=== PATIENT | female | born 1955 | race Caucasian/White ===

== ENCOUNTER 2018-04-17 00:54 | Outpatient (CLI) | payer MEDICAID, SELFPAY ==
--- NOTE | 2018-04-17 14:21 | DI.RAD_ITS ---
SYMPTOMS/DIAGNOSIS: SCREENING FOR OSTEOPOROSIS IN A POSTMENOPAUSAL WOMAN, Z78.0 DEXA SCAN: The scanogram is unremarkable. For the left hip, a T score of -1.2 and a Z score of -0.2 indicate osteopenia and an increased fracture risk. For the lumbar spine, a T score of -1.8 and a Z score of -0.3 indicate osteopenia and an increased fracture risk. For the left forearm, a T score of -2.1 and a Z score of -0.8 indicate osteopenia and an increased fracture risk.
--- NOTE | 2018-04-17 14:36 | DI.MAMMO_ITS ---
SYMPTOM/DIAGNOSIS: SCREENING MAMMOGRAMS: Mammograms were interpreted according to the usual protocol including computer analysis with CAD system, tomosynthesis and C view imaging. The breast tissue is of moderate radiodensity. There are two asymmetric densities in the left breast which appear unchanged when compared with prior images dating back to 11/02/2009. There are no suspicious calcifications. SUMMARY: No evidence of malignancy. Category 1. Yearly screening mammography is recommended. Breast density, category B. MQSA ASSESSMENT OF FINDINGS: Negative. Category 1. Patient will receive a letter notifying them of these results. BI-RADS category B. There are scattered areas of fibroglandular density.
== END 2018-04-17 01:14 ==
PROVIDERS: PCP Family Medicine; Visit Provider Family Medicine
DX: Z12.31 Encounter for screening mammogram for malignant neoplasm of breast (principal); M85.88 Other specified disorders of bone density and structure, other site; Z78.0 Asymptomatic menopausal state
CPT/HCPCS: 77063; 77067; 77080

== ENCOUNTER 2018-10-20 11:57 | Outpatient (REF) | payer MEDICAID, SELFPAY ==
[2018-10-20 21:11] LABS: ALT 15 U/L (12-78); AST 11 U/L (15-37); Albumin 4.3 g/dL (3.4-5.0); Alkaline Phosphatase 84 U/L (46-116); Anion Gap 12.2 mmol/L (3-11); BUN 13 mg/dL (7-18); Bilirubin, Total 0.4 mg/dL (0.2-1.0); CO2 23.8 mmol/L (21.0-32.0); CREATININE 0.76 mg/dL (0.55-1.02); Calcium 9.9 mg/dL (8.5-10.1); Chloride 105 mmol/L (98-107); Cholesterol 246 mg/dL (50-200); Glucose 93 mg/dL (70-100); HDL Cholesterol 54 mg/dL (40-60); LDL CHOLESTEROL 163 mg/dL (<100); Potassium 4.2 mmol/L (3.5-5.1); Sodium 141 mmol/L (136-145); Total Protein 7.5 g/dL (6.4-8.2); Triglyceride 127 mg/dL (30-150)
== END 2018-10-20 12:17 ==
LOC: NCHCN 11:57
PROVIDERS: PCP Family Medicine; Visit Provider Family Medicine
DX: E78.5 Hyperlipidemia, unspecified (principal)
CPT/HCPCS: 80053; 80061; 83721

== ENCOUNTER 2019-01-29 12:35 | Outpatient (CLI) | payer MEDICAID, SELFPAY ==
--- NOTE | 2019-01-29 13:23 | DI.US_ITS ---
SYMPTOMS/DIAGNOSIS: SUBMANDIBULAR GLAND MASS, K11.8 ULTRASOUND EXAMINATION OF THE SUBMANDIBULAR GLANDS: The left submandibular gland measures 4.7 x 1.4 x 2.3 cm. The right submandibular gland measures 4.4 x 1.2 x 2.8 cm. The glands are acoustically homogeneous. A normal [place]'s duct is visualized bilaterally. There is no evidence of sialolithiasis.
== END 2019-01-29 12:55 ==
PROVIDERS: PCP Family Medicine; Visit Provider Otolaryngology Otolaryngology/Facial Plastic Surgery
DX: K11.8 Other diseases of salivary glands (principal)
CPT/HCPCS: 76536

== ENCOUNTER 2023-06-16 11:17 | Emergency (ER) | payer MEDICARE, MEDICAID, SELFPAY ==
--- NOTE | 2023-06-16 11:15 | DI.RAD_ITS ---
Exam(s) XR ELBOW RT COMPLETE EXAM: XR ELBOW RT COMPLETE CLINICAL HISTORY: fall days ago. TECHNIQUE: 2D digital imaging was performed of the left elbow. Three images were obtained. AP, lat eral and oblique views were obtained. COMPARISON: No exams were available for comparison FINDINGS: BONES: There is avulsion fracture arising from the olecranon best appreciated on the lateral view. N o bony destructive lesion is seen. JOINTS: The elbow is normally aligned. No joint effusion is seen. SOFT TISSUE: There is soft tissue swelling posteriorly. IMPRESSION: Olecranon process avulsion fracture. DATA REPOSITORY: RADIATION DOSE DELIVERED:
[2023-06-16 11:22] VITALS: BP 171/104; PULSE 93; RESP 18; TEMP 36.7; O2SAT 97
--- NOTE | 2023-06-16 11:40 | ED.GENADUL_ITS ---
Discharge Plan Disposition Patient Disposition: Home Discharge Details Clinical Impression: Fracture of right olecranon process, Cellulitis of right elbow Primary Care Provider: Lorena Hodge ED Provider: Titi Villa Home Meds and New Rx's Prescriptions: New doxycycline hyclate 100 mg capsule 100 mg PO BID 10 Days Qty: 20 0RF No Action acetaminophen [Tylenol] 325 MG tablet 650 mg PRN PRN Discharge Instructions Instructions: Doxycycline (By mouth), Elbow Fracture (ED), Cellulitis (ED) Additional Instructions: You were seen in the emergency department for the infected superficial abrasions of your right elbow from a fall weeks ago. There is a small chip off the end of your elbow bone but does not require any manual reduction, please use the provided sling as needed and ice the area, some range of motion is permitted and you should not be immobilized 100% of the time in the sling. Please take 1000 mg of Tylenol every 6 hours, custodial in between Tylenol doses please take 400 mg of ibuprofen also on a 6-hour schedule. Take the prescribed doxycycline that we sent to your pharmacy for your infection and follow-up with your primary care provider for possible referral to wound care. Please return to ED for increasing redness, pain, fever. Referrals: Lorena Hodge [Primary Care Provider] - Discharge Data Discharge Date/Time-TO BE ENTERED AT DEPARTURE: 06/16/23 12:27 Medical Decision Making This dictation utilizes [id number] dictation software and may contain unedited grammatical errors. 67 y/o F presents to ED today with a chief complaint of fall with R elbow abrasions about two weeks ago, crusty scabs present, and mild erythema. Onset and characteristics include minor fall on pavement, still having sharp pain to R elbow olencranon, mild redness and crusting scabs - poor baseline self-care for wounds, without purulent drainage or passive severe ROM tenderness. Patients' medical history: noncontributory. Family and social history: noncontributory. Pertinent exam findings / vital signs include R UE: TTP at R elbow, mild redness surrounding scabbed over abrasions without honey-colored crusts to entire elbow, no ecchymosis, no crepitus, no unilateral arm swelling, ROM limited to pain, s trength 5/5, no bicep tenderness, no vertebral cervical tenderness, making machine catcher strength 5/5, sensation intact R hand. Differential / pathologies of concern include cellulitis, abscess, fracture, sprain/strain. Diagnostic studies of: -XR R Elbow - shows small avulsion fracture of olecranon process. Interventions of: -sling, general wound-care. ED Course/Assessment/Plan: 67-year-old female suffered a minor fall 2 weeks ago and has had poor self care for her wound since then, she reports still having pain at the elbow as well as some redness and crusting around her scabs that have formed, there is no sign of fluctuant abscess, no honey colored crusts of staph skin infection, she does have tenderness at the olecranon process without palpable crepitus, mild limited range of motion due to pain, no pain with passive range of motion, do not suspect septic arthritis at this time, the patient's wounds were cleaned and dressed with bacitracin, I did recommend that she follow-up with wound care which is unavailable at this facility I recommended she call her primary care provider, I stated that she has a small avulsion fracture of the olecranon process which needs time in the sling to heal but required no intervention currently, she may follow-up with orthopedics, recommend she remove the sling while at home and perform pendulum exercises to prevent frozen shoulder and take therapeutic dosing of Tylenol and ibuprofen as tolerated. Findings not consistent with septic arthritis, vascular pathology of right upper extremity, severe cellulitis, neurovascular compromise. Disposition of Cellulitis of Right Elbow, Fracture of Right Olecranon Process. Patient verbalized understanding of the plan and return to ED criteria and engaged in shared decision making. Medical Records Medical records reviewed: Yes I reviewed the patient's medical records. Imaging Data Radiologic Study: Radiologist's impression: Exam: XR Right Elbow Exam date and time: 06/16/2023 11:39 AM Age: 67 years old Clinical indication: Injury or trauma; Other: Fall days ago TECHNIQUE: Imaging protocol: Radiologic exam of the right elbow. Views: 3 or more views. COMPARISON: No relevant prior studies available. FINDINGS: Bones/joints: Small cortical avulsion fracture deformity of the olecranon process. Soft tissues: Soft tissue swelling about the ankle joint. IMPRESSION: Small cortical avulsion fracture deformity of the olecranon process. Adjacent soft tissue swelling. Dictated and Authenticated by: Olivia Brooks MD. Ordering:PAYAM Walls MD HPI General Date/Time Provider Initiated Documentation: 06/16/23 11:23 . HPI Narrative: 67 year-old female presents to ED today by POV with a chief complaint of minor fall about two weeks ago, scraping her R elbow (R-arm dominant) on pavement with onset of redness and failure to improve of elbow pain. Quality described as generalized elbow pain, crusty scabs, mild redness, pain with movement, no radiation to pain with passive ROM, fever, unilateral arm swelling, purulent drainage from abrasions. Severity is described as moderate. Palliating factors include nothing attempted, patient has poor baseline self-care for the abrasions. Provoking factors include nothing specific, denies vertigo/chest pain/syncope at fall, tripped. Patient not anticoagulated. Related Data Home Medications Medication Instructions Recorded Confirmed acetaminophen 325 mg tablet 650 mg PRN PRN 07/12/13 06/25/17 (Tylenol) doxycycline hyclate 100 mg capsule 100 mg PO BID cellulitis 10 days 06/16/23 #20 caps Previous Rx's Medication Instructions Recorded doxycycline hyclate 100 mg capsule 100 mg PO BID cellulitis 10 days 06/16/23 #20 caps Allergies Allergy/AdvReac Type Severity Reaction Status Date / Time No Known Allergies Allergy Unverified 06/16/23 11:27 General Stated Complaint: Cellulitis ABDIRIZAK: 3 Review of Systems All systems reviewed & are unremarkable except as noted in HPI and below PFSH All Active Problems (Updated 06/16/23 @ 12:03 by AGUS Roque) Cellulitis of right elbow (Acute) Fracture of right olecranon process (Acute) Social History Smoking/Tobacco Use Status: Current every day Tobacco Type: cigarettes Smoking risk assessment performed?: Yes Alcohol Intake: current Alcohol Intake frequency: a few times a month Drug use: Never Substance use type: does not use Do you feel safe at home: Yes Do you feel safe in your relationship?: Yes Exam Narrative Exam Narrative: GENERAL APPEARANCE: Well-nourished, non-toxic, awake and alert, atraumatic, no acute distress. SKIN: Warm, pink, dry, intact, without rashes/lesions/ulcerations. HEAD: Normocephalic, atraumatic, normal hair distribution for gender/age. EYES: Pupils PERRLA, EOMs intact without nystagmus, normal conjunctiva, no exudates on lids/lashes. ENT: Nares patent, no circumoral cyanosis, no facial swelling NECK: Supple, trachea midline, painless cervical ROM. LUNGS/CHEST: Non-labored respirations, normal A/P diameter, symmetrical expansion, no chest wall deformity HEART (CV/PV): Regular rate, R radial pulse 2+, no peripheral edema, no JVD. ABDOMEN: Soft, non-distended, no guarding. MSK: Normal ROM, no swelling/deformity to bilateral UEs or LEs, moving all extremities without weakness, no cyanosis, spine midline without tenderness, normal curvature. R UE: TTP at R elbow, mild redness surrounding scabbed over abrasions without honey-colored crusts to entire elbow, no ecchymosis, no crepitus, no unilateral arm swelling, ROM limited to pain, strength 5/5, no bicep tenderness, no vertebral cervical tenderness, making machine catcher strength 5/5, sensation intact R hand NEURO: Mental Status AAOx4 - alert to person, place, time, events No facial droop, no forehead involvement. Motor: No focal weakness - strength 5/5 in bilateral UEs and LEs, proximal and distal, symmetric. Sensory: sensation intact to light touch globally. Gait normal: patient ambulated without ataxia into ED room. PSYCH: euthymic, cooperative, pleasant, appropriate speech Course Vital Signs Vital signs: Vital Signs Temperature 36.7 C 06/16/23 11:22 Pulse 93 H 06/16/23 11:22 Respiratory Rate 18 06/16/23 11:22 Blood Pressure 171/104 H 06/16/23 11:22 Pulse Oximetry 97 06/16/23 11:22 Temperature 36.7 C 06/16/23 11:22 Temperature Source Skin 06/16/23 11:22 Pulse 93 H 06/16/23 11:22 Respiratory Rate 18 06/16/23 11:22 Respiratory Effort Normal 06/16/23 11:26 Blood Pressure 171/104 H 06/16/23 11:22 Blood Pressure Position Sitting 06/16/23 11:22 Pulse Oximetry 97 06/16/23 11:22 Oxygen Delivery Method Room Air 06/16/23 11:22 Oxygen Flow Rate 0 06/16/23 11:22 Pain Level 7 06/16/23 11:22
--- NOTE | 2023-06-16 11:59 | DI.VRAD_ITS ---
PROCEDURE INFORMATION: Exam: XR Right Elbow Exam date and time: 06/16/2023 11:39 AM Age: 67 years old Clinical indication: Injury or trauma; Other: Fall days ago TECHNIQUE: Imaging protocol: Radiologic exam of the right elbow. Views: 3 or more views. COMPARISON: No relevant prior studies available. FINDINGS: Bones/joints: Small cortical avulsion fracture deformity of the olecranon process. Soft tissues: Soft tissue swelling about the ankle joint. IMPRESSION: Small cortical avulsion fracture deformity of the olecranon process. Adjacent soft tissue swelling. Dictated and Authenticated by: Olivia Brooks MD. Ordering:PAYAM Walls MD
== END 2023-06-16 12:27 | disposition home or self-care (01) ==
PROVIDERS: Emergency Provider Physician Assistant; PCP Family Medicine
DX: S52.021A Displaced fracture of olecranon process without intraarticular extension of right ulna, initial encounter for closed fracture (principal); W19.XXXA Unspecified fall, initial encounter; L03.113 Cellulitis of right upper limb
CPT/HCPCS: 99283; 73080; 99284

== ENCOUNTER 2023-08-24 11:30 | Emergency (ER) | payer MEDICARE, MEDICAID, SELFPAY ==
[2023-08-24 11:32] VITALS: BP 198/93; PULSE 80; RESP 16; TEMP 36.7; O2SAT 98
--- NOTE | 2023-08-24 11:36 | ED.GENADUL_ITS ---
Discharge Plan Disposition Patient Disposition: Home Discharge Details Clinical Impression: Cellulitis of arm, right, Contact dermatitis, Blood pressure elevated without history of HTN Primary Care Provider: Lorena Hodge ED Provider: Martin Ledezma Home Meds and New Rx's Prescriptions: New triamcinolone acetonide 0.1 % ointment 1 applic topical BID 14 Days Qty: 80 0RF doxycycline monohydrate 25 mg/5 mL suspension for reconstitution 100 mg PO BID 5 Days Qty: 200 0RF Continued acetaminophen [Tylenol] 325 MG tablet 650 mg PO PRN PRN Discharge Instructions Instructions: Cellulitis (ED), Dermatitis (ED) Additional Instructions: You are seen in the emergency department for your arm swelling. You have signs of a skin infection for which you are receiving antibiotics that you should take for the next 5 days as directed. You also have signs of an allergic reaction from the lanolin in the bag balm. Please discontinue using bag balm. As needed you may use Vaseline. Please also take this prescription for topical steroid and use this twice a day for the next 2 weeks. The dermatology team at [facility] will call you for a follow-up appointment. Please call them on Saturday: As we discussed, if you develop any fevers chills cannot take antibiotics as result of nausea or vomiting please return to the emergency department. Discharge Data Discharge Date/Time-TO BE ENTERED AT DEPARTURE: 08/24/23 13:19 HPI General Date/Time Provider Initiated Documentation: 08/24/23 11:36 . HPI Narrative: MDM This is an overall very well-appearing normothermic and not tachycardic 68-year-old female with crusted plaque concerning for local inflammation secondary to topical emollient ointment versus cellulitis. No pain out of proportion to suggest necrotizing soft tissue infection. No history of IV drug use and no significant limitations in range of motion to suggest septic joint. No fluctuance to suggest abscess. Right hand warm well-perfused I am not concerned for vascular injury. Will repeat elbow x-ray given olecranon fracture diagnosed 2 months ago. No significant osseous tenderness to the right forearm however given trauma will obtain plain films. Will touch base with dermatology to discuss possibility of steroids. 12:51 PM I spoke with Dr. Camden Acevedo from dermatology at [facility] [place]. He was concerned that the patient's well-demarcated honey crusted erythematous plaque represented contact dermatitis from lanolin from bag balm. He advised discontinuing bag balm in favor of Vaseline as needed. He also recommended adding a steroid twice daily for 14 days: Triamcinolone 0.1 % Given concern for possible concurrent infection he also advised 5 days of doxycycline. 1:15 PM At the time of discharge patient's blood pressure still markedly elevated. She does not have a history of hypertension. I have asked health machine records units supervisor Michelle to have her seen next week by her primary care provider. I advised her that elevated blood pressure chronically could set her up for stroke myocardial infarction and other dangerous medical conditions. I advised her to return if she develops any difficulty breathing or headaches. She understood her return indications and was discharged with empiric trial of expectant outpatient management. Chronic conditions affecting the care of the patient: N/A History obtained from an outside historian: N/A External record review: N/A Medications: N/A Social determinants of health affecting disposition: N/A Management discussed with: Dermatology [facility] Treatment/interventions considered: N/A Response to therapies provided: N/A HPI This is a [id number] 68-year-old female arrived to the emergency department with her brother via private vehicle in the setting of right forearm discomfort and swelling. Patient was seen approximately 2 months ago for similar symptoms. She had sustained a fall approximately 5 months ago. She received 10-day course of doxycycline and a splint as it was concerned for an olecranon fracture at her next visit. She has had no recurrent trauma. She has been using her right upper extremity with no significant limitations in her range of motion. Patient reportedly has been applying bag balm to her right upper extremity. She took only 5 days of her 10-day course of doxycycline. She has had no fevers no chills no nausea no vomiting. Exam General: Well-appearing in no acute distress speaking in complete sentences. Head: Normocephalic, atraumatic. Eye: extraocular eye movements intact. No conjunctival injection. No scleral icterus. Ear, nose, mouth, throat: Grossly normal inspection. Normal voice, handling secretions normally. Neck: Trachea midline. Cardiovascular: Well-perfused distal extremities. Respiratory: Nonlabored respiration. Gastrointestinal: Nondistended abdomen. Musculoskeletal: On the volar surface of the patient's right upper extremity just distal to her elbow there is an approximately 7 x 3 cm crusted erythematous plaque. More proximally on the dorsal surface of the patient's distal humerus there is an approximately 3 x 3 cm crusted mildly erythematous and salmon- colored plaque. Right hand warm well-perfused. Cap refill less than 2 seconds in the right fingertips. Right 2+ radial pulse. Sensation and motor function intact in the right hand across the radial, ulnar, and median distributions. Skin: Normal for age and race, grossly normal temperature and turgor. No acute rash. Neurologic: Alert and appropriate, no apparent acute deficits. Psychiatric: Mood and manner are appropriate. Grooming and personal hygiene are appropriate. Related Data Home Medications Medication Instructions Recorded Confirmed acetaminophen 325 mg tablet 650 mg PO PRN PRN 07/12/13 08/24/23 (Tylenol) doxycycline monohydrate 25 mg/5 mL 100 mg (20 mL) PO BID 5 days #200 08/24/23 oral suspension mL triamcinolone acetonide 0.1 % 1 applic topical BID 14 days #80 08/24/23 topical ointment grams Previous Rx's Medication Instructions Recorded doxycycline monohydrate 25 mg/5 mL 100 mg (20 mL) PO BID 5 days #200 08/24/23 oral suspension mL triamcinolone acetonide 0.1 % 1 applic topical BID 14 days #80 08/24/23 topical ointment grams Allergies Allergy/AdvReac Type Severity Reaction Status Date / Time No Known Allergies Allergy Unverified 08/24/23 11:35 General Stated Complaint: Cellulitis ABDIRIZAK: 3 Course Vital Signs Vital signs: Vital Signs Temperature 36.7 C 08/24/23 11:32 Pulse 80 08/24/23 11:32 Respiratory Rate 16 08/24/23 11:32 Blood Pressure 198/93 H 08/24/23 11:32 Pulse Oximetry 98 08/24/23 11:32 Temperature 36.7 C 08/24/23 11:32 Temperature Source Skin 08/24/23 11:32 Pulse 80 08/24/23 11:32 Respiratory Rate 16 08/24/23 11:32 Blood Pressure 198/93 H 08/24/23 11:32 Blood Pressure Position Sitting 08/24/23 11:32 Pulse Oximetry 98 08/24/23 11:32 Oxygen Delivery Method Room Air 08/24/23 11:32 Oxygen Flow Rate 0 02/24/24 11:32 Pain Level 0 08/24/23 11:32 Medical Decision Making Quality:SDOH Health Related Social Needs: 2 No Data to Display PFSH All Active Problems (Updated 08/24/23 @ 13:19 by Martin Ledezma MD) Blood pressure elevated without history of HTN (Acute) Contact dermatitis (Acute) Cellulitis of arm, right (Acute) Social History Smoking/Tobacco Use Status: Current every day Tobacco Type: cigarettes Smoking risk assessment performed?: Yes Alcohol Intake: current Alcohol Intake frequency: a few times a month Drug use: Never Substance use type: does not use Do you feel safe at home: Yes Do you feel safe in your relationship?: Yes
--- NOTE | 2023-08-24 11:45 | DI.RAD_ITS ---
Exam(s) XR ELBOW RT COMPLETE EXAM: XR ELBOW RT COMPLETE CLINICAL HISTORY: Right elbow pain. TECHNIQUE: 2D digital imaging was performed. COMPARISON: CR,XR XR ELBOW RT COMPLETE from 06/16/2023 FINDINGS: 3 views There is a 9 x 3 millimeter osteophytic density posterior to the olecranon which is either an avulsio n injury at the triceps attachment level or calcification with in the olecranon bursa. There does no t appear to be elevation of the fat pads within the joint to suggest joint effusion. Radial head and neck appear intact as does the distal radius and epicondyles. No loose intra-articular bodies. There also appears to be some dorsal soft tissue swelling in the forearm starting at and continuing b elow the level of the elbow. IMPRESSION: Findings as above. Correlation with site of tenderness recommended. DATA REPOSITORY: RADIATION DOSE DELIVERED:
--- NOTE | 2023-08-24 11:45 | DI.RAD_ITS ---
Exam(s) XR FOREARM RT EXAM: XR FOREARM RT CLINICAL HISTORY: right forearm swelling per Dr. Ledezma and patient. TECHNIQUE: 2D digital imaging was performed. COMPARISON: No exams were available for comparison FINDINGS: Two views. There is prominent dorsal soft tissue swelling over the proximal half of the forearm. There is no ra diopaque foreign body. No fracture of the adjacent bones. However, there is an osteophytic sliver measuring 9 x 2 millimete rs at the level of the olecranon bursa with minimal swelling at this level. This is possibly calcifi c olecranon bursitis. There is no obvious cortical defect in the adjacent parent bone of the posteri or olecranon fossa. Nevertheless, correlation with site of tenderness is recommended, particularly i f there is a trauma history here. There does not appear to be an actual elbow joint effusion. IMPRESSION: As above. DATA REPOSITORY: RADIATION DOSE DELIVERED:
--- NOTE | 2023-08-24 12:47 | DI.VRAD_ITS ---
PROCEDURE INFORMATION: Exam: XR Right Forearm Exam date and time: 08/24/2023 12:25 PM Age: 68 years old Clinical indication: Other: Right forearm swelling TECHNIQUE: Imaging protocol: Radiologic exam of the right forearm. Views: 2 views. COMPARISON: CR XR ELBOW RT COMPLETE 06/16/2023 11:39 AM FINDINGS: Bones/joints: Small avulsion fracture deformity of the olecranon. This appears similar when compared to the prior examination. Soft tissues: Dorsal soft tissue swelling. IMPRESSION: Chronic avulsion fracture deformity of the olecranon. Dorsal soft tissue swelling Dictated and Authenticated by: Olivia Brooks MD. Ordering:YUMIKO Salazar MD
--- NOTE | 2023-08-24 12:47 | DI.VRAD_ITS ---
PROCEDURE INFORMATION: Exam: XR Right Elbow Exam date and time: 08/24/2023 12:26 PM Age: 68 years old Clinical indication: Other: Right elbow swelling TECHNIQUE: Imaging protocol: Radiologic exam of the right elbow. Views: 3 or more views. COMPARISON: CR XR ELBOW RT COMPLETE 06/16/2023 11:39 AM FINDINGS: Bones/joints: Small remote avulsion fracture deformity of the olecranon Soft tissues: Dorsal soft tissue swelling of the proximal forearm. IMPRESSION: Dorsal soft tissue swelling of the proximal forearm. Chronic avulsion fracture deformity of the olecranon Dictated and Authenticated by: Olivia Brooks MD. Ordering:YUMIKO Salazar MD
[2023-08-24 13:16] VITALS: BP 200/90; PULSE 75; RESP 17; O2SAT 97
--- NOTE | 2023-08-24 13:19 | NUR.NOTE ---
Referral faxed to Primary Care, Lorena Hodge, for follow up Elevated BP without Hypertension sometime next week.
== END 2023-08-24 13:19 | disposition home or self-care (01) ==
PROVIDERS: Emergency Provider Emergency Medicine; PCP Family Medicine
DX: R22.31 Localized swelling, mass and lump, right upper limb (principal); L03.113 Cellulitis of right upper limb; R03.0 Elevated blood-pressure reading, without diagnosis of hypertension; Z91.81 History of falling
CPT/HCPCS: 99284; 73080; 73090; 99283

== ENCOUNTER 2024-06-09 09:01 | Emergency (ER) | payer MEDICARE, MEDICAID, SELFPAY ==
[2024-06-09] VITALS (20 sets, daily range): BP systolic 153–164; BP diastolic 70–94; PULSE 63–74; RESP 14–26; TEMP 36.7–36.8; O2SAT 88–97
--- NOTE | 2024-06-09 09:15 | DI.CT_ITS ---
Exam(s) CT ABDOMEN PELVIS W EXAM: CT ABDOMEN PELVIS W CLINICAL HISTORY: Right lower quadrant pain. TECHNIQUE: Imaging Protocol: Axial computed tomography images with coronal and sagittal reformatted images were created and reviewed CONTRAST MATERIAL: Intravenous: Omnipaque-350 100cc Oral: None COMPARISON: No exams were available for comparison FINDINGS: VISUALIZED LUNG BASES: No nodules nor pleural effusions evident. ABDOMEN: There is no ascites. LIVER: There are no focal hepatic lesions evident. No dilated intrahepatic ducts. GALLBLADDER/BILIARY: No obvious gallbladder pathology. CBD is not dilated. PANCREAS: No evidence of pancreatic mass nor dilatation of the pancreatic duct. SPLEEN: Spleen is not enlarged. No obvious intrasplenic lesions. Splenic and portal veins are paten t. ADRENALS: There are no significant adrenal masses. KIDNEYS:No significant focal findings in the left kidney. There is mild hydronephrosis and hydrouret er on the right side. The right ureter is dilated to 8 mm. The culprit calculus is at the right ure terovesical junction and measures 7 x 5 mm. There is edema in the bladder wall at this level. No si gnificant renal cysts nor solid renal masses.. ABDOMINAL AORTA: The abdominal aorta is calcified and atherosclerotic. Maximum diameter is 2.4 cm. No dissection. The common iliac arteries are also calcified-atherosclerotic but not enlarged. LYMPH NODES:There is no retroperitoneal nor paraaortic adenopathy. ABDOMINAL WALL: No evidence of significant anterior abdominal wall nor inguinal hernia. GI: There is no evidence of bowel obstruction, free air, nor abscess. Extensive sigmoid diverticulosis. No obvious acute diverticulitis. PELVIS: GI: No evidence of acute appendicitis.No evidence of sigmoid diverticulitis. LYMPH NODES: There is no intrapelvic nor inguinal adenopathy. REPRODUCTIVE: Uterus and adnexal regions unremarkable. URINARY BLADDER: 7 x 5 mm culprit calculus at the intramural aspect right ureterovesical junction. N o other bladder findings. OSSEOUS: No fractures and no significant osseous lesions. Moderate disc space narrowing L4-5 and mild degenerative anterolisthesis L4 upon L5. No pars defects . IMPRESSION: 1. The main acute finding here is an obstructing 7 x 5 mm calculus in the lower most right ureter at the intramural aspect of the right ureterovesical junction. The ureter above this level is dilated t o 8 mm and there is dilatation of the ipsilateral extrarenal right renal pelvis. Also mild ipsilater al perinephric fluid. There are no radiopaque calculi seen in either kidney. 2. Atherosclerotic abdominal aorta with mild aneurysmal dilatation. No aneurysms of the iliac arteri es. 3. Extensive sigmoid diverticulosis but no evidence of obvious acute diverticulitis. Report called by myself to ER physician 06/09/2024 at 10:30 a.m. RADIATION DOSE DELIVERED: 500.26mGy.cm Total DLP DATA REPOSITORY: All CT scans at this facility are submitted to the National Radiology Data Registry (NRDR) Dose Index Registry (DIR) with the [employer] (A[employer]). RADIATION OPTIMIZATION: All CT scans at this facility use at least one of these dose optimization te chniques: automated exposure control; mA and/or kV adjustment per patient size (includes targeted exa ms where dose is matched to clinical indication); or iterative reconstruction.
--- NOTE | 2024-06-09 09:20 | ED.GENADUL_ITS ---
Discharge Plan Disposition Patient Disposition: Home Discharge Details Clinical Impression: Dilatation of aorta, Ureterolithiasis, Hydronephrosis of right kidney Primary Care Provider: Lorena Hodge ED Provider: Martin Ledezma Home Meds and New Rx's Prescriptions: New tamsulosin 0.4 mg capsule 0.4 mg PO .Nightly Qty: 14 0RF Morphine Ir, 4 Tabs/Btl [Msir, 4 Tabs/Btl] 15 mg PO DISPENSE 3 Days 0RF Ondansetron Odt, 3 Tabs/Btl [Zofran Odt, 3 Tabs/Btl] 4 mg PO DISPENSE Qty: 1 0RF Continued acetaminophen [Tylenol] 325 MG tablet 650 mg PO PRN PRN Discharge Instructions Instructions: Kidney Stone, Adult ED Additional Instructions: You were seen in the emergency department for your abdominal pain. You are found to have a 7 mm stone from your kidneys. Please call the urology team for follow-up. As we discussed please take these medicines that have been prescribed. If you develop fevers worsening pain or begin vomiting please return to the emergency department. You are also found to have a mildly enlarged aorta. Please follow-up with your primary care provider about this incidental finding as he will likely benefit from follow-up ultrasounds. For your pain please take medications as follows: 1. Take acetaminophen (Tylenol), 1,000 mg (two 500 mg tabs) every 6 hours [2. Take ibuprofen (Advil), 400 mg every 6 hours.] You are also receiving a stronger medication which you should use as needed for additional pain after taking acetaminophen and ibuprofen. Referrals: Apolonia Vallejo, VICK [NURSE PRACTITIONER] - 1 week HPI General Date/Time Provider Initiated Documentation: 06/09/24 09:20 . HPI Narrative: MDM This is an overall well-appearing normothermic and not tachycardic 68-year-old with right lower quadrant pain concerning for the possibility of appendicitis versus diverticulitis versus cholecystitis. Patient has no obvious gallbladder wall thickening nor pericholecystic fluid on ultrasound however given appendicitis is in the differential will obtain CT scan. Patient has no history of nephrolithiasis however ureterolithiasis is certainly on the differential. I considered PE however the patient is not short of breath and not having chest pain so I did not send a D-dimer. Given no nausea no vomiting no chest pain my suspicion was low for ACS I did not obtain an ECG. No dysuria no frequency so doubt UTI. No pain out of proportion to suggest necrotizing soft tissue infection. No rash to abdomen to suggest zoster. No diarrhea nor fevers though diverticulitis is on the differential. Colitis is certainly on the differential given the patient's age. No history of inflammatory bowel disease so my suspicion is low for Crohn's or ulcerative colitis based on the patient's age. No past surgical history to abdomen and not vomiting so my suspicion is low for small bowel obstruction. Will treat with IV acetaminophen and fentanyl. 10:33 AM Pt had a right-sided UVJ stone measuring 7 mm for which I reached out to urology. Normal renal function, no GLEN. UA pending. UA nitrite negative??not consistent with UTI. 9:15 AM I spoke with Apolonia Vallejo from urology who will help follow-up with the patient. She advised tremulous and pain meds and referral. Will also provide ondansetron. I met with the patient and explained that she should return if she develops fevers begins vomiting that does not stop or if she has worsening pain. Will discharge her with tamsulosin, ondansetron, and short course of morphine IR. She was also found to have a mild dilatation of her abdominal aorta for which I advised PCP follow-up. I also told her about this incidental finding. I have asked healthy to juan Martinez to have her seen by a primary care provider in the next month as she reportedly does not have a PCP. HPI This is a 68-year-old female arrived to the emergency department via private vehicle in the setting of right-sided abdominal pain that woke patient up from sleep this morning. No history of ureterolithiasis. No dysuria no frequency. No diarrhea. No nausea nor vomiting. No black nor bloody stools. Last bowel movement was yesterday and was reportedly normal. No past surgical history to abdomen. No fevers cough no shortness of breath. No chest pain. Exam General: Well-appearing in no acute distress speaking in complete sentences. Head: Normocephalic, atraumatic. Eye: Extraocular eye movements intact. No conjunctival injection. No scleral icterus. Ear, nose, mouth, throat: Grossly normal inspection. Normal voice, handling secretions normally. Neck: Trachea midline. Cardiovascular: Well-perfused distal extremities. Respiratory: Nonlabored respiration. Gastrointestinal: Nondistended abdomen. Musculoskeletal: No edema. Moving all 4 extremities spontaneously. Skin: Normal for age and race, grossly normal temperature and turgor. No acute rash. Neurologic: Alert and appropriate, no apparent acute deficits. Psychiatric: Mood and manner are appropriate. Grooming and personal hygiene are appropriate. Related Data Home Medications ?Medication ?Instructions ?Recorded ?Confirmed acetaminophen 325 mg tablet 650 mg PO PRN PRN 07/12/13 06/09/24 (Tylenol) MORPHine IR, 4 tabs/btl [MSIR, 4 15 mg PO DISPENSE 3 days 06/09/24 tabs/btl] Ondansetron ODT, 3 tabs/btl 4 mg PO DISPENSE #1 unit 06/09/24 [Zofran ODT, 3 tabs/btl] tamsulosin 0.4 mg capsule 0.4 mg PO .Nightly #14 caps 06/09/24 Previous Rx's ?Medication ?Instructions ?Recorded MORPHine IR, 4 tabs/btl [MSIR, 4 15 mg PO DISPENSE 3 days 06/09/24 tabs/btl] Ondansetron ODT, 3 tabs/btl 4 mg PO DISPENSE #1 unit 06/09/24 [Zofran ODT, 3 tabs/btl] tamsulosin 0.4 mg capsule 0.4 mg PO .Nightly #14 caps 06/09/24 Allergies Allergy/AdvReac Type Severity Reaction Status Date / Time No Known Allergies Allergy Unverified 06/09/24 09:13 General Stated Complaint: Abd Prob ABDIRIZAK: 3 Course Vital Signs Vital signs: Vital Signs Temperature 36.7 C 06/09/24 09:10 Pulse 66 06/09/24 09:10 Respiratory Rate 16 06/09/24 09:10 Blood Pressure 164/92 H 06/09/24 09:10 Pulse Oximetry 95 06/09/24 09:10 Temperature 36.7 C 06/09/24 09:10 Temperature Source Oral 06/09/24 09:10 Pulse 66 06/09/24 09:10 Respiratory Rate 16 06/09/24 09:10 Blood Pressure 164/92 H 06/09/24 09:10 Blood Pressure Position Sitting 06/09/24 09:10 Pulse Oximetry 95 06/09/24 09:10 Oxygen Delivery Method Room Air 06/09/24 09:10 Oxygen Flow Rate 0 06/09/24 09:10 Pain Level 9 06/09/24 09:10 Medical Decision Making Quality:SDOH Health Related Social Needs: No Data to Display PFSH All Active Problems (Updated 06/09/24 @ 11:21 by Martin Ledezma MD) Hydronephrosis of right kidney (Acute) Ureterolithiasis (Acute) Dilatation of aorta (Acute) Social History Smoking/Tobacco Use Status: Current every day Tobacco Type: cigarettes Smoking risk assessment performed?: Yes Alcohol Intake: current Alcohol Intake frequency: a few times a month Drug use: Never Substance use type: does not use Housing: house Do you feel safe at home: Yes Do you feel safe in your relationship?: Yes POCUS Exam (ED) Limited Gallbladder Exam DATE OF EXAM: 06/09/24 TIME OF EXAM: 09:45 PROVIDER THAT PERFORMED THE STUDY: Martin Ledezma REASON FOR VISIT: Abdominal pain VISUALIZED STRUCTURES: Common bile duct and Gallbladder PERTINENT FINDINGS/IMPRESSION: No Cholecystitis, No gallstones, No Pericholecystic fluid and No thickening of the gallbladder wall Exam complete
[2024-06-09] MEDS: fentaNYL 100 MCG/2 ML VIAL 50 MCG IVP (09:28)
[2024-06-09] MEDS: ACETAMINOPHEN 1,000 MG/100 ML BAG 400 MG IVPB (09:53)
[2024-06-09 09:56] LABS: Abs Immature Grans 0.04 10^3/uL (0.0-0.06); Absolute Basophil Count 0.06 10^3/uL (0.0-0.2); Absolute Eosinophil Count 0.22 10^3/uL (0.0-0.7); Absolute Lymphocyte Count 2.06 10^3/uL (1.2-3.4); Absolute Neutrophil Count 8.24 10^3/uL (1.2-6.7); Basophils % 0.5 %; Eosinophils % 1.9 %; HCT 44.3 % (36.0-46.0); HGB 14.3 g/dL (11.2-15.7); Immature Grans % 0.4 %; Lymphocytes % 18.2 %; MCHC 32.3 % (32.0-36.0); MCV 93 fL (80-95); MPV 8.4 fL (8.0-11.0); Monocytes % 6.2 %; Neutrophils % 72.8 %; Platelet Count 259 10^3/uL (130-400); RBC 4.77 10^6/uL (3.93-5.22); RDW 13.2 % (11.7-14.6); RDW-SD 45.6 fL; WBC 11.32 10^3/uL (4.4-10.8)
[2024-06-09] MEDS: Normal Saline - Diluent 50 ML VIAL IJ (09:59)
[2024-06-09] MEDS: Omnipaque 350 MG/ML 100 ML BTL IJ (10:00)
[2024-06-09 10:13] LABS: ALT 14 U/L (14-59); AST 9 U/L (15-37); Albumin 3.9 g/dL (3.4-5.0); Alkaline Phosphatase 93 U/L (46-116); Anion Gap 6.6 mmol/L (3-11); BUN 17 mg/dL (7-18); Bilirubin, Total 0.39 mg/dL (0.2-1.0); CO2 28.4 mmol/L (21.0-32.0); Calcium 9.7 mg/dL (8.5-10.1); Chloride 106 mmol/L (98-107); Estimated GFR 61.75 (mL/min/1.73m2); Glucose 109 mg/dL (74-106); Lipase 40 U/L (<78); Potassium 4.6 mmol/L (3.5-5.1); Sodium 141 mmol/L (136-145); Total Protein 7.4 g/dL (6.4-8.2)
[2024-06-09] MEDS: Ketorolac 15 MG/ML VIAL IVP (11:02)
[2024-06-09 11:04] LABS: Bilirubin Negative (Negative); Blood Trace-intact (Negative); Clarity Clear (Clear); Glucose Negative (Negative); Ketones Negative (Negative); Leukocyte Esterase Negative (Negative); Nitrite Negative (Negative); Specific Gravity 1.015 (1.005-1.025); Urobilinogen 0.2 mg/dL (Up to 0.2)
[2024-06-09 11:14] LABS: Bacteria Negative HPF (Negative); C & S Indicated? No; Casts Negative LPF (Negative); Crystals Negative HPF (Negative); Epithelial Cells Rare HPF (Negative); Mucus Negative (Negative); WBC 0-2 HPF (0-5)
[2024-06-09] MEDS: MORPHine IR 15 MG TAB, 4 TABS/BTL PO (11:36)
[2024-06-09] MEDS: Ondansetron O.D.T. 4 MG TABEF, 3 TABS/BTL PO (11:37)
== END 2024-06-09 12:01 | disposition home or self-care (01) ==
PROVIDERS: Emergency Provider Emergency Medicine; PCP Family Medicine
DX: N13.2 Hydronephrosis with renal and ureteral calculous obstruction (principal); K57.30 Diverticulosis of large intestine without perforation or abscess without bleeding; I77.811 Abdominal aortic ectasia; F17.210 Nicotine dependence, cigarettes, uncomplicated
CPT/HCPCS: 76705; 80053; 83690; 96365; 96366; 96375; 99285; 74177; 81003; 81015; 85025; J0131; J1885; J3010; J3490